=== PATIENT | male | born 1975 | race Caucasian/White ===

== ENCOUNTER 2018-09-17 18:38 | Emergency (ER) | payer MEDICAID ==
[~2018-09-17] VITALS: Ht 172.7 cm; Wt 79.2 kg
[2018-09-17 18:46] VITALS: BP 124/79
== END 2018-09-17 19:43 | disposition home or self-care (01) ==
LOC: ED 19:37
DX: L20.84 Intrinsic (allergic) eczema (principal)
CPT/HCPCS: 99283

== ENCOUNTER 2019-02-08 10:20 | Emergency (ER) | payer MEDICAID ==
[~2019-02-08] VITALS: Ht 172.7 cm; Wt 78.6 kg
[2019-02-08 10:23] VITALS: BP 120/69
== END 2019-02-08 11:21 | disposition home or self-care (01) ==
LOC: ED 11:10
DX: R21 Rash and other nonspecific skin eruption (principal)
CPT/HCPCS: 99283